=== PATIENT | female | born 1940 | race Native Hawaiian/Other Pacific Islander ===

== ENCOUNTER 2016-06-17 09:31 | Inpatient (IN) | payer OTHER | END 2016-07-18 08:00 | disposition still patient (30) | LOC: PAVB 09:31 | PROVIDERS: ADMIT Internal Medicine | DX: Z51.89 Encounter for other specified aftercare (principal) ==

== ENCOUNTER 2016-07-18 09:00 | Inpatient (IN) | payer OTHER | END 2016-08-18 10:17 | disposition still patient (30) | LOC: PAVB 09:00 | PROVIDERS: ADMIT Internal Medicine | DX: Z51.89 Encounter for other specified aftercare (principal) ==

== ENCOUNTER 2016-08-18 10:43 | Inpatient (IN) | payer OTHER | END 2016-09-15 09:45 | disposition still patient (30) | LOC: PAVB 10:43 | PROVIDERS: ADMIT Internal Medicine | DX: Z51.89 Encounter for other specified aftercare (principal) ==

== ENCOUNTER 2016-09-15 10:35 | Inpatient (IN) | payer OTHER | END 2016-10-16 08:04 | disposition still patient (30) | LOC: PAVB 10:35 | PROVIDERS: ADMIT Internal Medicine | DX: Z51.89 Encounter for other specified aftercare (principal) ==

== ENCOUNTER 2016-09-16 06:12 | Outpatient (CLI) | payer OTHER ==
[2016-09-16 06:47] LABS: PLATELET COUNT 241 K/uL (152-353)
[2016-09-16 06:59] LABS: SODIUM 138 mmol/L (136-145)
== END 2016-09-16 19:28 | disposition home or self-care (01) ==
LOC: LAB 06:12
PROVIDERS: Internal Medicine
DX: I10 Essential (primary) hypertension (principal); E11.9 Type 2 diabetes mellitus without complications; D51.8 Other vitamin B12 deficiency anemias
CPT/HCPCS: 36415; 80053; 82306; 83036; 85027

== ENCOUNTER 2016-10-16 09:29 | Inpatient (IN) | payer OTHER | END 2016-11-15 09:10 | disposition still patient (30) | LOC: PAVB 09:29 | PROVIDERS: ADMIT Internal Medicine | DX: Z51.89 Encounter for other specified aftercare (principal) ==

== ENCOUNTER 2016-11-03 05:13 | Outpatient (CLI) | payer OTHER | END 2016-11-03 19:02 | disposition home or self-care (01) | LOC: LAB 05:13 | DX: Z16.24 Resistance to multiple antibiotics (principal) | CPT/HCPCS: 87081 ==

== ENCOUNTER 2016-11-15 10:02 | Inpatient (IN) | payer OTHER | END 2016-12-16 09:35 | disposition still patient (30) | LOC: PAVB 10:02 | PROVIDERS: ADMIT Internal Medicine | DX: Z51.89 Encounter for other specified aftercare (principal) ==

== ENCOUNTER 2016-12-16 10:01 | Inpatient (IN) | payer OTHER | END 2017-01-15 15:22 | disposition still patient (30) | LOC: PAVB 10:01 | PROVIDERS: ADMIT Internal Medicine | DX: Z51.89 Encounter for other specified aftercare (principal) ==

== ENCOUNTER 2016-12-20 09:52 | Outpatient (CLI) | payer OTHER | END 2016-12-20 19:26 | disposition home or self-care (01) | LOC: LAB 09:52 | DX: E11.9 Type 2 diabetes mellitus without complications (principal) | CPT/HCPCS: 83036 ==

== ENCOUNTER 2017-01-15 15:43 | Inpatient (IN) | payer OTHER | END 2017-02-15 09:44 | disposition still patient (30) | LOC: PAVB 15:43 | PROVIDERS: ADMIT Internal Medicine | DX: Z51.89 Encounter for other specified aftercare (principal) ==

== ENCOUNTER 2017-02-15 10:36 | Inpatient (IN) | payer OTHER | END 2017-03-18 08:42 | disposition still patient (30) | LOC: PAVB 10:36 | PROVIDERS: ADMIT Internal Medicine | DX: Z51.89 Encounter for other specified aftercare (principal) ==

== ENCOUNTER 2017-03-18 09:16 | Inpatient (IN) | payer OTHER | END 2017-04-17 10:40 | disposition still patient (30) | LOC: PAVB 09:16 | PROVIDERS: ADMIT Internal Medicine | DX: Z51.89 Encounter for other specified aftercare (principal) ==

== ENCOUNTER 2017-03-21 05:00 | Outpatient (CLI) | payer OTHER ==
[2017-03-21 05:48] LABS: SODIUM 139 mmol/L (136-145)
[2017-03-21 06:31] LABS: PLATELET COUNT 299 K/uL (152-353)
== END 2017-03-21 18:57 | disposition home or self-care (01) ==
LOC: LAB 05:00
PROVIDERS: Internal Medicine
DX: I10 Essential (primary) hypertension (principal); E11.9 Type 2 diabetes mellitus without complications; D51.8 Other vitamin B12 deficiency anemias; E55.9 Vitamin D deficiency, unspecified
CPT/HCPCS: 36415; 80053; 82306; 83036; 85027

== ENCOUNTER 2017-03-28 17:55 | Outpatient (CLI) | payer OTHER | END 2017-03-28 18:45 | disposition home or self-care (01) | LOC: LAB 17:55 | DX: R10.84 Generalized abdominal pain (principal); R10.32 Left lower quadrant pain | CPT/HCPCS: 81000 ==

== ENCOUNTER 2017-04-17 10:44 | Inpatient (IN) | payer OTHER | END 2017-05-18 12:57 | disposition still patient (30) | LOC: PAVB 10:44 | PROVIDERS: ADMIT Internal Medicine ==

== ENCOUNTER 2017-05-18 13:47 | Inpatient (IN) | payer OTHER | END 2017-06-17 09:20 | disposition still patient (30) | LOC: PAVB 13:47 | PROVIDERS: ADMIT Internal Medicine ==

== ENCOUNTER 2017-06-17 09:43 | Inpatient (IN) | payer OTHER | END 2017-07-18 09:31 | disposition still patient (30) | LOC: PAVB 09:43 | PROVIDERS: ADMIT Internal Medicine ==

== ENCOUNTER 2017-06-20 06:17 | Outpatient (CLI) | payer OTHER | END 2017-06-20 07:20 | disposition home or self-care (01) | LOC: LAB 06:17 | DX: E11.9 Type 2 diabetes mellitus without complications (principal) | CPT/HCPCS: 83036 ==

== ENCOUNTER 2017-07-18 10:05 | Inpatient (IN) | payer OTHER | END 2017-08-18 09:50 | disposition still patient (30) | LOC: PAVB 10:05 | PROVIDERS: ADMIT Internal Medicine ==

== ENCOUNTER 2017-08-18 10:39 | Inpatient (IN) | payer OTHER | END 2017-09-15 09:19 | disposition still patient (30) | LOC: PAVB 10:39 | PROVIDERS: ADMIT Internal Medicine ==

== ENCOUNTER 2017-09-15 10:00 | Inpatient (IN) | payer OTHER | END 2017-10-16 08:00 | disposition still patient (30) | LOC: PAVB 10:00 | PROVIDERS: ADMIT Internal Medicine ==

== ENCOUNTER 2017-09-19 03:49 | Outpatient (CLI) | payer OTHER ==
[2017-09-19 06:18] LABS: PLATELET COUNT 367 K/uL (152-353)
[2017-09-19 06:27] LABS: POTASSIUM 3.6 mmol/L (3.6-5.2)
== END 2017-09-19 19:16 | disposition home or self-care (01) ==
LOC: LABW 03:49
PROVIDERS: Internal Medicine
DX: E11.9 Type 2 diabetes mellitus without complications (principal); D51.8 Other vitamin B12 deficiency anemias
CPT/HCPCS: 36415; 80053; 82306; 83036; 85027

== ENCOUNTER 2017-10-16 09:00 | Inpatient (IN) | payer OTHER | END 2017-11-15 09:05 | disposition still patient (30) | LOC: PAVB 09:00 | PROVIDERS: ADMIT Internal Medicine ==

== ENCOUNTER 2017-11-08 16:01 | Outpatient (CLI) | payer OTHER | END 2017-11-08 22:33 | disposition home or self-care (01) | LOC: LAB 16:01 | DX: R41.82 Altered mental status, unspecified (principal) | CPT/HCPCS: 81000 ==

== ENCOUNTER 2017-11-15 09:44 | Inpatient (IN) | payer OTHER | END 2017-12-16 08:53 | disposition still patient (30) | LOC: PAVB 09:44 | PROVIDERS: ADMIT Internal Medicine ==

== ENCOUNTER 2017-12-16 09:21 | Inpatient (IN) | payer OTHER | END 2018-01-15 14:20 | disposition still patient (30) | LOC: PAVB 09:21 | PROVIDERS: ADMIT Internal Medicine ==

== ENCOUNTER 2017-12-20 09:51 | Outpatient (CLI) | payer OTHER | END 2017-12-20 22:21 | disposition home or self-care (01) | LOC: LAB 09:51 | DX: E11.9 Type 2 diabetes mellitus without complications (principal) | CPT/HCPCS: 83036 ==

== ENCOUNTER 2018-01-15 14:53 | Inpatient (IN) | payer OTHER | END 2018-02-15 08:00 | disposition still patient (30) | LOC: PAVB 14:53 | PROVIDERS: ADMIT Internal Medicine ==

== ENCOUNTER 2018-02-15 09:00 | Inpatient (IN) | payer OTHER | END 2018-03-18 10:19 | disposition still patient (30) | LOC: PAVB 09:00 | PROVIDERS: ADMIT Internal Medicine ==

== ENCOUNTER 2018-03-01 12:40 | Outpatient (CLI) | payer OTHER | END 2018-03-01 23:59 | disposition home or self-care (01) | LOC: RAD 12:40 | DX: M54.89 Other dorsalgia (principal) ==

== ENCOUNTER 2018-03-18 11:02 | Inpatient (IN) | payer OTHER | END 2018-04-17 09:34 | disposition still patient (30) | LOC: PAVB 11:02 | PROVIDERS: ADMIT Internal Medicine ==

== ENCOUNTER 2018-03-23 08:06 | Outpatient (CLI) | payer OTHER ==
[2018-03-23 08:19] LABS: PLATELET COUNT 415 K/uL (152-353)
[2018-03-23 08:43] LABS: POTASSIUM 4.1 mmol/L (3.6-5.2)
== END 2018-03-23 23:17 | disposition home or self-care (01) ==
LOC: LAB 08:06
PROVIDERS: Internal Medicine
DX: E11.9 Type 2 diabetes mellitus without complications (principal); I10 Essential (primary) hypertension; E55.9 Vitamin D deficiency, unspecified
CPT/HCPCS: 36415; 80053; 82306; 83036; 85027

== ENCOUNTER 2018-04-17 10:15 | Inpatient (IN) | payer OTHER | END 2018-05-18 08:48 | disposition still patient (30) | LOC: PAVB 10:15 | PROVIDERS: ADMIT Internal Medicine ==

== ENCOUNTER 2018-05-03 03:47 | Outpatient (CLI) | payer OTHER | END 2018-05-03 19:11 | disposition home or self-care (01) | LOC: LAB 03:47 | DX: D53.9 Nutritional anemia, unspecified (principal) | CPT/HCPCS: 36415; 82728 ==

== ENCOUNTER 2018-05-15 10:40 | Outpatient (CLI) | payer OTHER ==
[2018-05-15 10:57] LABS: PLATELET COUNT 432 K/uL (152-353)
[2018-05-15 11:08] LABS: POTASSIUM 4.3 mmol/L (3.6-5.2)
== END 2018-05-15 19:59 | disposition home or self-care (01) ==
LOC: LAB 10:40
PROVIDERS: Internal Medicine
DX: R41.82 Altered mental status, unspecified (principal); D50.8 Other iron deficiency anemias; R53.1 Weakness
CPT/HCPCS: 80053; 81000; 82728; 83540; 85027

== ENCOUNTER 2018-05-16 14:19 | Outpatient (CLI) | payer OTHER | END 2018-05-16 21:24 | disposition home or self-care (01) | LOC: RAD 14:19 | DX: D72.828 Other elevated white blood cell count (principal); R53.1 Weakness ==

== ENCOUNTER 2018-05-18 09:52 | Inpatient (IN) | payer OTHER | END 2018-06-17 08:33 | disposition still patient (30) | LOC: PAVB 09:52 | PROVIDERS: ADMIT Internal Medicine ==

== ENCOUNTER 2018-06-05 14:55 | Outpatient (CLI) | payer OTHER | END 2018-06-05 19:53 | disposition home or self-care (01) | LOC: RAD 14:55 | DX: N95.8 Other specified menopausal and perimenopausal disorders (principal) ==

== ENCOUNTER 2018-06-17 09:17 | Inpatient (IN) | payer OTHER | END 2018-07-18 11:05 | disposition still patient (30) | LOC: PAVB 09:17 | PROVIDERS: ADMIT Internal Medicine ==

== ENCOUNTER 2018-06-20 04:05 | Outpatient (CLI) | payer OTHER | END 2018-06-20 21:17 | disposition home or self-care (01) | LOC: LAB 04:05 | DX: E11.9 Type 2 diabetes mellitus without complications (principal) | CPT/HCPCS: 36415; 83036 ==

== ENCOUNTER 2018-06-29 16:10 | Outpatient (CLI) | payer OTHER | END 2018-06-29 23:30 | disposition home or self-care (01) | LOC: LAB 16:10 | DX: R10.30 Lower abdominal pain, unspecified (principal) | CPT/HCPCS: 81000 ==

== ENCOUNTER 2018-07-18 11:25 | Inpatient (IN) | payer OTHER | END 2018-08-18 10:54 | disposition still patient (30) | LOC: PAVB 11:25 | PROVIDERS: ADMIT Internal Medicine ==

== ENCOUNTER 2018-08-18 11:15 | Inpatient (IN) | payer OTHER | END 2018-09-15 10:19 | disposition still patient (30) | LOC: PAVB 11:15 | PROVIDERS: ADMIT Internal Medicine ==

== ENCOUNTER 2018-09-15 11:12 | Inpatient (IN) | payer OTHER | END 2018-10-16 10:39 | disposition still patient (30) | LOC: PAVB 11:12 | PROVIDERS: ADMIT Internal Medicine ==

== ENCOUNTER 2018-09-19 07:37 | Outpatient (CLI) | payer OTHER ==
[2018-09-19 08:28] LABS: PLATELET COUNT 364 K/uL (152-353)
[2018-09-19 08:36] LABS: POTASSIUM 3.9 mmol/L (3.6-5.2)
== END 2018-09-19 23:46 | disposition home or self-care (01) ==
LOC: LAB 07:37
PROVIDERS: Internal Medicine
DX: E11.9 Type 2 diabetes mellitus without complications (principal); I10 Essential (primary) hypertension; E55.9 Vitamin D deficiency, unspecified
CPT/HCPCS: 80053; 82306; 83036; 85027

== ENCOUNTER 2018-09-24 14:14 | Outpatient (CLI) | payer OTHER | END 2018-09-24 20:15 | disposition other institution (70) | LOC: LAB 14:14 | DX: D64.9 Anemia, unspecified (principal); D58.2 Other hemoglobinopathies | CPT/HCPCS: 82272 ==

== ENCOUNTER 2018-09-30 15:38 | Outpatient (CLI) | payer OTHER | END 2018-09-30 23:42 | disposition home or self-care (01) | LOC: LAB 15:38 | DX: D64.9 Anemia, unspecified (principal) | CPT/HCPCS: 82272 ==

== ENCOUNTER 2018-10-02 13:56 | Outpatient (CLI) | payer OTHER | END 2018-10-02 22:47 | disposition home or self-care (01) | LOC: LAB 13:56 | DX: D64.9 Anemia, unspecified (principal) | CPT/HCPCS: 82272 ==

== ENCOUNTER 2018-10-16 11:20 | Inpatient (IN) | payer OTHER | END 2018-11-15 11:17 | disposition still patient (30) | LOC: PAVB 11:20 | PROVIDERS: ADMIT Internal Medicine ==

== ENCOUNTER 2018-11-15 12:24 | Inpatient (IN) | payer OTHER | END 2018-12-16 08:38 | disposition still patient (30) | LOC: PAVB 12:24 | PROVIDERS: ADMIT Internal Medicine | DX: Z51.89 Encounter for other specified aftercare (principal) ==

== ENCOUNTER 2018-12-16 09:29 | Inpatient (IN) | payer OTHER | END 2019-01-15 09:37 | disposition still patient (30) | LOC: PAVB 09:29 | PROVIDERS: ADMIT Internal Medicine ==

== ENCOUNTER 2018-12-20 04:50 | Outpatient (CLI) | payer OTHER | END 2018-12-20 23:22 | disposition home or self-care (01) | LOC: LAB 04:50 | DX: E11.21 Type 2 diabetes mellitus with diabetic nephropathy (principal) | CPT/HCPCS: 83036 ==

== ENCOUNTER 2019-01-15 11:26 | Inpatient (IN) | payer OTHER | END 2019-02-15 10:35 | disposition still patient (30) | LOC: PAVB 11:26 | PROVIDERS: ADMIT Internal Medicine ==

== ENCOUNTER 2019-02-15 11:18 | Inpatient (IN) | payer OTHER | END 2019-03-18 16:26 | disposition still patient (30) | LOC: PAVB 11:18 | PROVIDERS: ADMIT Internal Medicine ==

== ENCOUNTER 2019-03-18 17:07 | Inpatient (IN) | payer OTHER | END 2019-04-17 09:21 | disposition still patient (30) | LOC: PAVB 17:07 | PROVIDERS: ADMIT Internal Medicine ==

== ENCOUNTER 2019-03-20 09:02 | Outpatient (CLI) | payer OTHER ==
[2019-03-20 09:41] LABS: POTASSIUM 4.1 mmol/L (3.6-5.2); SODIUM 141 mmol/L (136-145)
[2019-03-20 09:42] LABS: PLATELET COUNT 394 K/uL (152-353)
== END 2019-03-20 22:51 | disposition home or self-care (01) ==
LOC: LAB 09:02
PROVIDERS: Internal Medicine
DX: E11.9 Type 2 diabetes mellitus without complications (principal); I10 Essential (primary) hypertension; E55.9 Vitamin D deficiency, unspecified
CPT/HCPCS: 80053; 82306; 83036; 85027

== ENCOUNTER 2019-03-20 10:00 | Inpatient (IN) | payer OTHER ==
[~2019-03-20] VITALS: Ht 160 cm; Wt 74.6 kg
[2019-03-20 12:00] VITALS: BP 136/56; TEMP 98.7
[2019-03-20 14:23] VITALS: BP 136/56; TEMP 98.7; Ht 160 cm; Wt 74.6 kg
[2019-03-20 16:00] VITALS: BP 124/40; TEMP 98.7
[2019-03-20 20:00] VITALS: BP 132/40; TEMP 98
[2019-03-21] VITALS: BP 125/49; TEMP 98.6
[2019-03-21 04:00] VITALS: BP 131/55; TEMP 97.9
[2019-03-21 08:00] VITALS: BP 130/45; TEMP 98.3
[2019-03-21 12:00] VITALS: BP 136/51; TEMP 98.6
[2019-03-21 16:00] VITALS: BP 143/51; TEMP 99.2
[2019-03-21 20:00] VITALS: BP 147/59; TEMP 98.7
[2019-03-22] VITALS: BP 136/47; TEMP 98.9
[2019-03-22 04:00] VITALS: BP 127/51; TEMP 98.6
[2019-03-22 08:00] VITALS: BP 150/59; TEMP 99.4
== END 2019-03-22 11:40 | DRG 812 ==
LOC: MED/SURG 10:00
PROVIDERS: ADMIT Internal Medicine
PROC: 30233N1 Transfusion of Nonautologous Red Blood Cells into Peripheral Vein, Percutaneous Approach (ICD-10-PCS; 2019-03-20)
PROC: 30233N1 Transfusion of Nonautologous Red Blood Cells into Peripheral Vein, Percutaneous Approach (ICD-10-PCS; principal; 2019-03-21)
DX: D62 Acute posthemorrhagic anemia (principal); E11.42 Type 2 diabetes mellitus with diabetic polyneuropathy; F78 Other intellectual disabilities; M15.8 Other polyosteoarthritis; I11.0 Hypertensive heart disease with heart failure
CPT/HCPCS: 36415; 85014; 85018; 86850; 86900; 86901; 86922; J1940; P9016

== ENCOUNTER 2019-03-25 01:48 | Outpatient (CLI) | payer OTHER ==
[2019-03-25 02:38] LABS: PLATELET COUNT 350 K/uL (152-353)
== END 2019-03-25 23:16 | disposition home or self-care (01) ==
LOC: LAB 01:48
PROVIDERS: Internal Medicine
DX: D64.89 Other specified anemias (principal)
CPT/HCPCS: 36415; 85027

== ENCOUNTER 2019-03-28 10:30 | Outpatient (CLI) | payer OTHER | END 2019-03-28 20:11 | disposition home or self-care (01) | LOC: LAB 10:30 | DX: D64.89 Other specified anemias (principal) | CPT/HCPCS: 82272 ==

== ENCOUNTER 2019-03-28 23:12 | Outpatient (CLI) | payer OTHER | END 2019-03-28 23:15 | disposition home or self-care (01) | LOC: LAB 23:12 | DX: Z12.11 Encounter for screening for malignant neoplasm of colon (principal); D64.89 Other specified anemias | CPT/HCPCS: 82272 ==

== ENCOUNTER 2019-04-01 04:20 | Outpatient (CLI) | payer OTHER ==
[2019-04-01 05:44] LABS: PLATELET COUNT 296 K/uL (152-353)
== END 2019-04-01 20:10 | disposition home or self-care (01) ==
LOC: LAB 04:20
PROVIDERS: Internal Medicine
DX: D64.89 Other specified anemias (principal)
CPT/HCPCS: 85027

== ENCOUNTER 2019-04-02 14:49 | Outpatient (CLI) | payer OTHER | END 2019-04-02 20:16 | disposition home or self-care (01) | LOC: LAB 14:49 | DX: D64.9 Anemia, unspecified (principal) | CPT/HCPCS: 36415; 82728; 83540 ==

== ENCOUNTER 2019-04-06 09:59 | Outpatient (CLI) | payer OTHER | END 2019-04-06 19:20 | disposition home or self-care (01) | LOC: LAB 09:59 | DX: E16.1 Other hypoglycemia (principal); D64.89 Other specified anemias | CPT/HCPCS: 82272 ==

== ENCOUNTER 2019-04-17 10:31 | Inpatient (IN) | payer OTHER | END 2019-05-18 11:10 | disposition still patient (30) | LOC: PAVB 10:31 | PROVIDERS: ADMIT Internal Medicine ==

== ENCOUNTER 2019-04-23 06:46 | Outpatient (CLI) | payer OTHER ==
[2019-04-23 07:51] LABS: PLATELET COUNT 267 K/uL (152-353)
== END 2019-04-23 22:16 | disposition home or self-care (01) ==
LOC: LAB 06:46
PROVIDERS: Internal Medicine
DX: I50.9 Heart failure, unspecified (principal); D64.89 Other specified anemias
CPT/HCPCS: 85027

== ENCOUNTER 2019-05-18 11:35 | Inpatient (IN) | payer OTHER | END 2019-06-17 08:00 | disposition still patient (30) | LOC: PAVB 11:35 | PROVIDERS: ADMIT Internal Medicine ==

== ENCOUNTER 2019-05-23 05:18 | Outpatient (CLI) | payer OTHER ==
[2019-05-23 06:30] LABS: PLATELET COUNT 335 K/uL (152-353)
== END 2019-05-23 21:33 | disposition home or self-care (01) ==
LOC: LAB 05:18
PROVIDERS: Internal Medicine
DX: I10 Essential (primary) hypertension (principal)
CPT/HCPCS: 85027

== ENCOUNTER 2019-06-17 10:00 | Inpatient (IN) | payer OTHER | END 2019-07-18 08:34 | disposition still patient (30) | LOC: PAVB 10:00 | PROVIDERS: ADMIT Internal Medicine ==

== ENCOUNTER 2019-06-20 06:06 | Outpatient (CLI) | payer OTHER | END 2019-06-20 20:41 | disposition home or self-care (01) | LOC: LAB 06:06 | DX: E11.40 Type 2 diabetes mellitus with diabetic neuropathy, unspecified (principal) | CPT/HCPCS: 36415; 83036 ==

== ENCOUNTER 2019-07-18 08:52 | Inpatient (IN) | payer OTHER | END 2019-08-18 09:56 | disposition still patient (30) | LOC: PAVB 08:52 | PROVIDERS: ADMIT Internal Medicine ==

== ENCOUNTER 2019-07-19 05:54 | Outpatient (CLI) | payer OTHER ==
[2019-07-19 06:36] LABS: PLATELET COUNT 324 K/uL (152-353)
== END 2019-07-19 19:30 | disposition home or self-care (01) ==
LOC: LAB 05:54
PROVIDERS: Internal Medicine
DX: I10 Essential (primary) hypertension (principal); D64.89 Other specified anemias
CPT/HCPCS: 85027

== ENCOUNTER 2019-08-18 10:35 | Inpatient (IN) | payer OTHER | END 2019-09-16 13:15 | disposition still patient (30) | LOC: PAVB 10:35 | PROVIDERS: ADMIT Internal Medicine ==

== ENCOUNTER 2019-09-16 14:00 | Inpatient (IN) | payer OTHER | END 2019-10-17 09:41 | disposition still patient (30) | LOC: PAVB 14:00 | PROVIDERS: ADMIT Internal Medicine ==

== ENCOUNTER 2019-09-19 12:18 | Outpatient (CLI) | payer OTHER | END 2019-09-19 19:22 | disposition home or self-care (01) | LOC: RAD 12:18 | DX: M79.644 Pain in right finger(s) (principal); M79.641 Pain in right hand ==

== ENCOUNTER 2019-09-20 04:24 | Outpatient (CLI) | payer OTHER ==
[2019-09-20 06:32] LABS: POTASSIUM 3.7 mmol/L (3.6-5.2)
[2019-09-20 17:09] LABS: PLATELET COUNT 413 K/uL (152-353)
== END 2019-09-20 21:28 | disposition home or self-care (01) ==
LOC: LAB 04:24
PROVIDERS: Internal Medicine
DX: I10 Essential (primary) hypertension (principal); E11.40 Type 2 diabetes mellitus with diabetic neuropathy, unspecified
CPT/HCPCS: 80053; 82306; 83036; 85027

== ENCOUNTER 2019-10-17 10:27 | Inpatient (IN) | payer OTHER | END 2019-11-16 09:02 | disposition still patient (30) | LOC: PAVB 10:27 | PROVIDERS: ADMIT Internal Medicine ==

== ENCOUNTER 2019-11-16 10:07 | Inpatient (IN) | payer OTHER | END 2019-12-17 09:12 | disposition still patient (30) | LOC: PAVB 10:07 | PROVIDERS: ADMIT Internal Medicine | CPT/HCPCS: 87635; U0002 ==

== ENCOUNTER 2019-12-17 10:05 | Inpatient (IN) | payer OTHER | END 2020-01-16 10:20 | disposition still patient (30) | LOC: PAVB 10:05 | PROVIDERS: ADMIT Internal Medicine | CPT/HCPCS: 87635; U0002 ==

== ENCOUNTER 2020-01-16 11:06 | Inpatient (IN) | payer OTHER | END 2020-02-16 09:17 | disposition still patient (30) | LOC: PAVB 11:06 | PROVIDERS: ADMIT Internal Medicine | CPT/HCPCS: 87635; U0002 ==

== ENCOUNTER 2020-02-12 15:50 | Outpatient (CLI) | payer OTHER | END 2020-02-12 21:27 | disposition home or self-care (01) | LOC: RAD 15:50 | DX: M25.571 Pain in right ankle and joints of right foot (principal) ==

== ENCOUNTER 2020-02-14 10:08 | Outpatient (CLI) | payer OTHER | END 2020-02-14 19:18 | disposition home or self-care (01) | LOC: LAB 10:08 | DX: E55.9 Vitamin D deficiency, unspecified (principal) | CPT/HCPCS: 82306 ==

== ENCOUNTER 2020-02-16 09:41 | Inpatient (IN) | payer OTHER | END 2020-03-18 12:18 | disposition still patient (30) | LOC: PAVB 09:41 | PROVIDERS: ADMIT Internal Medicine | CPT/HCPCS: 87635; U0002; U0003 ==

== ENCOUNTER 2020-03-10 11:20 | Outpatient (CLI) | payer OTHER | END 2020-03-10 19:19 | disposition home or self-care (01) | LOC: RAD 11:20 | DX: S92.341A Displaced fracture of fourth metatarsal bone, right foot, initial encounter for closed fracture (principal) ==

== ENCOUNTER 2020-03-18 13:05 | Inpatient (IN) | payer OTHER | END 2020-04-17 11:06 | disposition still patient (30) | LOC: PAVB 13:05 | PROVIDERS: ADMIT Internal Medicine ==

== ENCOUNTER 2020-03-21 06:05 | Outpatient (CLI) | payer OTHER ==
[2020-03-21 06:43] LABS: PLATELET COUNT 388 K/uL (152-353)
[2020-03-21 06:53] LABS: POTASSIUM 4.2 mmol/L (3.6-5.2)
== END 2020-03-21 20:02 | disposition home or self-care (01) ==
LOC: LAB 06:05
PROVIDERS: Internal Medicine
DX: D64.9 Anemia, unspecified (principal); I10 Essential (primary) hypertension; E55.9 Vitamin D deficiency, unspecified; E10.9 Type 1 diabetes mellitus without complications
CPT/HCPCS: 80053; 82306; 82728; 83036; 83540; 85027

== ENCOUNTER 2020-03-25 15:55 | Outpatient (CLI) | payer OTHER | END 2020-03-25 19:17 | disposition home or self-care (01) | LOC: LAB 15:55 | DX: D64.89 Other specified anemias (principal) | CPT/HCPCS: 82272 ==

== ENCOUNTER 2020-03-28 07:48 | Outpatient (CLI) | payer OTHER | END 2020-03-28 23:50 | disposition home or self-care (01) | LOC: LAB 07:48 | DX: D64.89 Other specified anemias (principal) | CPT/HCPCS: 85014; 85018 ==

== ENCOUNTER 2020-03-31 07:15 | Outpatient (CLI) | payer OTHER | END 2020-03-31 19:11 | disposition home or self-care (01) | LOC: LAB 07:15 | DX: D64.89 Other specified anemias (principal) | CPT/HCPCS: 85014; 85018 ==

== ENCOUNTER 2020-04-17 13:48 | Inpatient (IN) | payer OTHER | END 2020-05-18 08:00 | disposition still patient (30) | LOC: PAVB 13:48 | PROVIDERS: ADMIT Internal Medicine ==

== ENCOUNTER 2020-05-18 09:00 | Inpatient (IN) | payer OTHER | END 2020-06-17 09:59 | disposition still patient (30) | LOC: PAVB 09:00 | PROVIDERS: ADMIT Internal Medicine; ATTEND Internal Medicine ==

== ENCOUNTER 2020-06-06 14:11 | Outpatient (CLI) | payer OTHER | END 2020-06-06 19:23 | disposition home or self-care (01) | LOC: RAD 14:11 | PROVIDERS: ATTEND Internal Medicine | DX: M19.90 Unspecified osteoarthritis, unspecified site (principal); N95.8 Other specified menopausal and perimenopausal disorders; Z13.820 Encounter for screening for osteoporosis ==

== ENCOUNTER 2020-06-17 06:30 | Outpatient (CLI) | payer OTHER | END 2020-06-17 22:20 | disposition home or self-care (01) | LOC: LAB 06:30 | PROVIDERS: ATTEND Internal Medicine | DX: E11.9 Type 2 diabetes mellitus without complications (principal); F79 Unspecified intellectual disabilities | CPT/HCPCS: 83036 ==

== ENCOUNTER 2020-06-17 11:11 | Inpatient (IN) | payer OTHER | END 2020-07-18 09:04 | disposition still patient (30) | LOC: PAVB 11:11 | PROVIDERS: ADMIT Internal Medicine; ATTEND Internal Medicine ==

== ENCOUNTER 2020-07-18 09:26 | Inpatient (IN) | payer OTHER | END 2020-08-18 14:57 | disposition still patient (30) | LOC: PAVB 09:26 | PROVIDERS: ADMIT Internal Medicine; ATTEND Internal Medicine ==

== ENCOUNTER 2020-08-13 19:12 | Outpatient (CLI) | payer OTHER | END 2020-08-13 21:56 | disposition home or self-care (01) | LOC: LAB 19:12 | PROVIDERS: ATTEND Internal Medicine | DX: N39.0 Urinary tract infection, site not specified (principal) | CPT/HCPCS: 81000 ==

== ENCOUNTER 2020-08-18 15:21 | Inpatient (IN) | payer OTHER | END 2020-09-15 09:55 | disposition still patient (30) | LOC: PAVB 15:21 | PROVIDERS: ADMIT Internal Medicine; ATTEND Internal Medicine ==

== ENCOUNTER 2020-09-15 10:21 | Inpatient (IN) | payer OTHER | END 2020-10-16 10:15 | disposition still patient (30) | LOC: PAVB 10:21 | PROVIDERS: ADMIT Internal Medicine; ATTEND Internal Medicine ==

== ENCOUNTER 2020-09-15 10:44 | Outpatient (CLI) | payer OTHER ==
[2020-09-15 11:04] LABS: POTASSIUM 4.9 mmol/L (3.6-5.2)
[2020-09-15 11:26] LABS: PLATELET COUNT 414 K/uL (152-353)
== END 2020-09-15 22:50 | disposition home or self-care (01) ==
LOC: LAB 10:44
PROVIDERS: ATTEND Internal Medicine
DX: I10 Essential (primary) hypertension (principal); E55.9 Vitamin D deficiency, unspecified; E11.40 Type 2 diabetes mellitus with diabetic neuropathy, unspecified; F79 Unspecified intellectual disabilities
CPT/HCPCS: 80053; 82306; 83036; 85027

== ENCOUNTER 2020-09-18 09:18 | Outpatient (CLI) | payer OTHER | END 2020-09-18 21:30 | disposition home or self-care (01) | LOC: LAB 09:18 | PROVIDERS: ATTEND Internal Medicine | DX: D64.9 Anemia, unspecified (principal) | CPT/HCPCS: 82728; 83540 ==

== ENCOUNTER 2020-10-16 10:40 | Inpatient (IN) | payer OTHER | END 2020-11-15 10:51 | disposition still patient (30) | LOC: PAVB 10:40 | PROVIDERS: ADMIT Internal Medicine; ATTEND Internal Medicine ==

== ENCOUNTER 2020-11-15 11:15 | Inpatient (IN) | payer OTHER | END 2020-12-16 14:40 | disposition still patient (30) | LOC: PAVB 11:15 | PROVIDERS: ADMIT Internal Medicine; ATTEND Internal Medicine ==

== ENCOUNTER 2020-12-16 07:40 | Outpatient (CLI) | payer OTHER | END 2020-12-16 19:08 | disposition home or self-care (01) | LOC: LAB 07:40 | PROVIDERS: ATTEND Internal Medicine | DX: E11.9 Type 2 diabetes mellitus without complications (principal) | CPT/HCPCS: 83036 ==

== ENCOUNTER 2020-12-16 15:07 | Inpatient (IN) | payer OTHER | END 2021-01-15 08:00 | disposition still patient (30) | LOC: PAVB 15:07 | PROVIDERS: ADMIT Internal Medicine; ATTEND Internal Medicine ==

== ENCOUNTER 2021-01-15 09:00 | Inpatient (IN) | payer OTHER | END 2021-02-15 08:00 | disposition still patient (30) | LOC: PAVB 09:00 | PROVIDERS: ADMIT Internal Medicine; ATTEND Internal Medicine ==

== ENCOUNTER 2021-02-15 09:00 | Inpatient (IN) | payer OTHER | END 2021-03-18 10:35 | disposition still patient (30) | LOC: PAVB 09:00 | PROVIDERS: ADMIT Internal Medicine; ATTEND Internal Medicine ==

== ENCOUNTER 2021-02-19 15:28 | Outpatient (CLI) | payer OTHER | END 2021-02-19 20:37 | disposition home or self-care (01) | LOC: LAB 15:28 | PROVIDERS: ATTEND Internal Medicine | DX: R31.9 Hematuria, unspecified (principal) | CPT/HCPCS: 81000 ==

== ENCOUNTER 2021-03-18 08:02 | Outpatient (CLI) | payer OTHER ==
[2021-03-18 09:03] LABS: PLATELET COUNT 333 K/uL (152-353)
[2021-03-18 09:22] LABS: POTASSIUM 4.2 mmol/L (3.6-5.2)
== END 2021-03-18 23:00 | disposition home or self-care (01) ==
LOC: LAB 08:02
PROVIDERS: ATTEND Internal Medicine
DX: E11.40 Type 2 diabetes mellitus with diabetic neuropathy, unspecified (principal); F79 Unspecified intellectual disabilities; E55.9 Vitamin D deficiency, unspecified; D64.89 Other specified anemias; I10 Essential (primary) hypertension
CPT/HCPCS: 80053; 82306; 82728; 83036; 83540; 85027

== ENCOUNTER 2021-03-18 13:23 | Inpatient (IN) | payer OTHER | END 2021-04-17 08:45 | disposition still patient (30) | LOC: PAVB 13:23 | PROVIDERS: ADMIT Internal Medicine; ATTEND Internal Medicine ==

== ENCOUNTER 2021-06-17 10:34 | Inpatient (IN) | payer OTHER | END 2021-07-18 08:23 | disposition still patient (30) | LOC: PAVB 10:34 | PROVIDERS: ADMIT Internal Medicine; ATTEND Internal Medicine ==

== ENCOUNTER 2021-06-17 12:45 | Outpatient (CLI) | payer OTHER | END 2021-06-17 20:28 | disposition home or self-care (01) | LOC: LAB 12:45 | PROVIDERS: ATTEND Internal Medicine | DX: E11.40 Type 2 diabetes mellitus with diabetic neuropathy, unspecified (principal) | CPT/HCPCS: 83036 ==

== ENCOUNTER → 2021-07-06 | Outpatient (CLI) | payer OTHER | LOC: LAB 19:54 | PROVIDERS: ATTEND Internal Medicine | DX: R30.9 Painful micturition, unspecified (principal) | CPT/HCPCS: 81000; 87077; 87086; 87088; 87186 ==

== ENCOUNTER 2021-07-18 08:58 | Inpatient (IN) | payer OTHER | END 2021-08-18 09:32 | disposition still patient (30) | LOC: PAVB 08:58 | PROVIDERS: ADMIT Internal Medicine; ATTEND Internal Medicine ==

== ENCOUNTER 2021-08-17 14:11 | Outpatient (CLI) | payer OTHER | END 2021-08-17 19:06 | disposition home or self-care (01) | LOC: LAB 14:11 | PROVIDERS: ATTEND Internal Medicine | DX: N89.8 Other specified noninflammatory disorders of vagina (principal); K62.5 Hemorrhage of anus and rectum | CPT/HCPCS: 81000; 82272 ==

== ENCOUNTER 2021-08-18 15:18 | Inpatient (IN) | payer OTHER | END 2021-09-15 08:59 | disposition still patient (30) | LOC: PAVB 15:18 | PROVIDERS: ADMIT Internal Medicine; ATTEND Internal Medicine ==

== ENCOUNTER 2021-09-15 09:42 | Outpatient (CLI) | payer OTHER | END 2021-09-15 19:04 | disposition home or self-care (01) | LOC: LAB 09:42 | PROVIDERS: ATTEND Internal Medicine | DX: E11.42 Type 2 diabetes mellitus with diabetic polyneuropathy (principal) | CPT/HCPCS: 83036 ==

== ENCOUNTER 2021-09-15 12:43 | Inpatient (IN) | payer OTHER | END 2021-10-16 08:42 | disposition still patient (30) | LOC: PAVB 12:43 | PROVIDERS: ADMIT Internal Medicine; ATTEND Internal Medicine ==

== ENCOUNTER 2021-09-17 07:34 | Outpatient (CLI) | payer OTHER | END 2021-09-17 19:05 | disposition home or self-care (01) | LOC: LAB 07:34 | PROVIDERS: ATTEND Internal Medicine | DX: D64.9 Anemia, unspecified (principal) | CPT/HCPCS: 82728; 83540 ==

== ENCOUNTER 2021-10-16 09:45 | Inpatient (IN) | payer OTHER | END 2021-11-15 10:23 | disposition still patient (30) | LOC: PAVB 09:45 | PROVIDERS: ADMIT Internal Medicine; ATTEND Internal Medicine ==

== ENCOUNTER 2021-11-15 01:15 | Inpatient (IN) | payer OTHER | END 2021-12-16 09:39 | disposition still patient (30) | LOC: PAVB 01:15 | PROVIDERS: ADMIT Internal Medicine; ATTEND Internal Medicine ==

== ENCOUNTER 2021-12-16 10:45 | Outpatient (CLI) | payer OTHER | END 2021-12-16 19:13 | disposition home or self-care (01) | LOC: LAB 10:45 | PROVIDERS: ATTEND Internal Medicine | DX: E11.40 Type 2 diabetes mellitus with diabetic neuropathy, unspecified (principal) | CPT/HCPCS: 83036 ==

== ENCOUNTER 2021-12-16 14:10 | Inpatient (IN) | payer OTHER | END 2022-01-15 09:07 | disposition still patient (30) | LOC: PAVB 14:10 | PROVIDERS: ADMIT Internal Medicine; ATTEND Internal Medicine ==

== ENCOUNTER 2022-01-15 11:24 | Inpatient (IN) | payer OTHER | END 2022-02-15 09:17 | disposition still patient (30) | LOC: PAVB 11:24 | PROVIDERS: ADMIT Internal Medicine; ATTEND Internal Medicine ==

== ENCOUNTER 2022-02-15 11:53 | Inpatient (IN) | payer OTHER | END 2022-03-18 09:04 | disposition still patient (30) | LOC: PAVB 11:53 | PROVIDERS: ADMIT Internal Medicine; ATTEND Internal Medicine ==

== ENCOUNTER 2022-03-18 08:32 | Outpatient (CLI) | payer OTHER ==
[2022-03-18 09:17] LABS: PLATELET COUNT 314 K/uL (152-353)
[2022-03-18 09:44] LABS: POTASSIUM 4.6 mmol/L (3.6-5.2)
== END 2022-03-18 19:27 | disposition home or self-care (01) ==
LOC: LAB 08:32
PROVIDERS: ATTEND Internal Medicine Endocrinology, Diabetes & Metabolism
DX: D64.89 Other specified anemias (principal); E55.9 Vitamin D deficiency, unspecified; F79 Unspecified intellectual disabilities; I10 Essential (primary) hypertension; E11.40 Type 2 diabetes mellitus with diabetic neuropathy, unspecified
CPT/HCPCS: 80053; 82306; 82728; 83036; 83540; 85027

== ENCOUNTER 2022-03-18 12:01 | Inpatient (IN) | payer OTHER | END 2022-04-17 10:27 | disposition still patient (30) | LOC: PAVB 12:01 | PROVIDERS: ADMIT Internal Medicine Endocrinology, Diabetes & Metabolism; ATTEND Internal Medicine Endocrinology, Diabetes & Metabolism ==

== ENCOUNTER 2022-04-17 12:46 | Inpatient (IN) | payer OTHER | END 2022-05-18 14:48 | disposition still patient (30) | LOC: PAVB 12:46 | PROVIDERS: ADMIT Internal Medicine Endocrinology, Diabetes & Metabolism; ATTEND Internal Medicine Endocrinology, Diabetes & Metabolism ==

== ENCOUNTER 2022-05-18 15:41 | Inpatient (IN) | payer OTHER | END 2022-06-17 15:07 | disposition still patient (30) | LOC: PAVB 15:41 | PROVIDERS: ADMIT Internal Medicine Endocrinology, Diabetes & Metabolism; ATTEND Internal Medicine Endocrinology, Diabetes & Metabolism ==

== ENCOUNTER 2022-06-08 13:03 | Outpatient (CLI) | payer OTHER | END 2022-06-08 20:17 | disposition home or self-care (01) | LOC: RAD 13:03 | PROVIDERS: ATTEND Internal Medicine Endocrinology, Diabetes & Metabolism | DX: Z13.820 Encounter for screening for osteoporosis (principal); N95.8 Other specified menopausal and perimenopausal disorders ==

== ENCOUNTER 2022-06-17 17:24 | Inpatient (IN) | payer OTHER | END 2022-07-18 10:38 | disposition still patient (30) | LOC: PAVB 17:24 | PROVIDERS: ADMIT Internal Medicine Endocrinology, Diabetes & Metabolism; ATTEND Internal Medicine Endocrinology, Diabetes & Metabolism ==

== ENCOUNTER 2022-06-18 08:02 | Outpatient (CLI) | payer OTHER | END 2022-06-18 19:10 | disposition home or self-care (01) | LOC: LAB 08:02 | PROVIDERS: ATTEND Internal Medicine Endocrinology, Diabetes & Metabolism | DX: E11.9 Type 2 diabetes mellitus without complications (principal) | CPT/HCPCS: 83036 ==

== ENCOUNTER 2022-07-18 12:23 | Inpatient (IN) | payer OTHER | END 2022-08-18 08:51 | disposition still patient (30) | LOC: PAVB 12:23 | PROVIDERS: ADMIT Internal Medicine Endocrinology, Diabetes & Metabolism; ATTEND Internal Medicine Endocrinology, Diabetes & Metabolism ==

== ENCOUNTER 2022-08-18 11:01 | Inpatient (IN) | payer OTHER | END 2022-09-15 12:04 | disposition still patient (30) | LOC: PAVB 11:01 | PROVIDERS: ADMIT Internal Medicine Endocrinology, Diabetes & Metabolism; ATTEND Internal Medicine Endocrinology, Diabetes & Metabolism ==

== ENCOUNTER 2022-09-15 09:29 | Outpatient (CLI) | payer OTHER ==
[2022-09-15 10:09] LABS: PLATELET COUNT 427 K/uL (152-353)
[2022-09-15 10:37] LABS: POTASSIUM 4.5 mmol/L (3.6-5.2)
== END 2022-09-15 19:13 | disposition home or self-care (01) ==
LOC: LAB 09:29
PROVIDERS: ATTEND Internal Medicine Endocrinology, Diabetes & Metabolism
DX: D64.89 Other specified anemias (principal); I10 Essential (primary) hypertension; E55.9 Vitamin D deficiency, unspecified; E11.9 Type 2 diabetes mellitus without complications
CPT/HCPCS: 80053; 82306; 82728; 83036; 83540; 85027

== ENCOUNTER 2022-09-15 13:03 | Inpatient (IN) | payer OTHER | END 2022-10-16 11:26 | disposition still patient (30) | LOC: PAVB 13:03 | PROVIDERS: ADMIT Internal Medicine Endocrinology, Diabetes & Metabolism; ATTEND Internal Medicine Endocrinology, Diabetes & Metabolism ==

== ENCOUNTER 2022-10-16 11:57 | Inpatient (IN) | payer OTHER | END 2022-11-15 10:49 | disposition still patient (30) | LOC: PAVB 11:57 | PROVIDERS: ADMIT Internal Medicine Endocrinology, Diabetes & Metabolism; ATTEND Internal Medicine Endocrinology, Diabetes & Metabolism ==

== ENCOUNTER 2022-11-15 13:39 | Inpatient (IN) | payer OTHER | END 2022-12-16 10:37 | disposition still patient (30) | LOC: PAVB 13:39 | PROVIDERS: ADMIT Internal Medicine Endocrinology, Diabetes & Metabolism; ATTEND Internal Medicine Endocrinology, Diabetes & Metabolism ==

== ENCOUNTER 2022-12-16 11:16 | Inpatient (IN) | payer OTHER | END 2023-01-15 17:34 | disposition still patient (30) | LOC: PAVB 11:16 | PROVIDERS: ADMIT Internal Medicine Endocrinology, Diabetes & Metabolism; ATTEND Internal Medicine Endocrinology, Diabetes & Metabolism ==

== ENCOUNTER 2022-12-29 10:30 | Outpatient (CLI) | payer OTHER | END 2022-12-29 22:10 | disposition home or self-care (01) | LOC: RAD 10:30 | PROVIDERS: ATTEND Internal Medicine | DX: M25.512 Pain in left shoulder (principal) ==

== ENCOUNTER 2023-03-22 08:39 | Outpatient (CLI) | payer OTHER ==
[2023-03-22 09:05] LABS: PLATELET COUNT 394 K/uL (152-353)
[2023-03-22 09:31] LABS: POTASSIUM 4.3 mmol/L (3.6-5.2)
== END 2023-03-22 22:01 | disposition home or self-care (01) ==
LOC: LAB 08:39
PROVIDERS: ATTEND Internal Medicine
DX: I10 Essential (primary) hypertension (principal); E55.9 Vitamin D deficiency, unspecified; E11.9 Type 2 diabetes mellitus without complications
CPT/HCPCS: 80053; 82306; 82728; 83036; 83540; 85027